=== PATIENT | female | born 1975 | race Caucasian/White ===

== ENCOUNTER 2024-06-07 11:01 | Emergency (ER) | payer SELFPAY ==
[2024-06-07 11:03] VITALS: BP 127/93
--- NOTE | 2024-06-07 11:34 | EDRN ---
Anshu JORDAN in room w/pt at this time.
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
[2024-06-07 12:03] VITALS: BMI 20.7
[2024-06-07 12:09] VITALS: BP 101/78
[2024-06-07 12:13] LABS: % Basophils 0.4 % (0-2); % Eosinophils 0.7 % (0-6); % Immature Granulocytes 0.2 % (0-0.5); % Lymphocytes 17.2 % (20.5-51.1); % Monocytes 7.3 % (1.7-9.3); % Neutrophils 74.2 % (42.2-75.2); Absolute Basophils 0.1 10^3/uL (0-0.2); Absolute Eosinophils 0.1 10^3/uL (0-0.7); Absolute Lymphocytes 2.1 10^3/uL (1.2-3.4); Absolute Monocytes 0.9 10^3/uL (0.1-0.6); Hematocrit 39.9 % (37.0-47.0); Hemoglobin 13.9 g/dL (12.0-16.0); Mean Corp Hgb Conc. 34.8 g/dL (33.0-37.0); Mean Corpuscular Volume 86.2 fL (81.0-99.0); Mean Platelet Volume 9.9 fL (7.4-10.4); Nucleated Red Blood Cells % 0 %; Platelet Count 335 10^3/uL (130-400); Red Blood Cell Count 4.63 10^6/uL (4.20-5.40); Red Cell Dist. Width 13.3 % (11.5-14.5); White Blood Cell Count 12.1 10^3/uL (4.8-10.8)
[2024-06-07 12:26] LABS: ALT (SGPT) 24 U/L (0-35); AST (SGOT) 28 U/L (14-36); Albumin 4.6 g/dl (3.5-5.0); Alkaline Phosphatase 64 U/L (38-126); Blood Urea Nitrogen 13 mg/dl (7-17); Calcium 9.7 mg/dl (8.4-10.2); Carbon Dioxide 29 mmol/L (22-30); Chloride 102 mmol/L (98-107); Estimated Creatinine Clearance 85 ml/min; Glucose 105 mg/dl (70-99); Potassium 4.4 mmol/L (3.5-5.1); Sodium 142 mmol/L (135-145); Total Bilirubin 0.4 mg/dl (0.2-1.3); eGFR > 60.00
--- NOTE | 2024-06-07 12:50 | EDRN ---
Pt still needs an xray.
--- NOTE | 2024-06-07 13:55 | EDRN ---
Anshu JORDAN in room w/pt at this time.
[2024-06-07 14:02] VITALS: BP 122/89
== END 2024-06-07 14:07 | disposition home or self-care (01) ==
LOC: EMR 11:01
PROVIDERS: Physician Assistant; EMERGENCY PHYSICIAN Emergency Medicine
DX: S16.1XXA Strain of muscle, fascia and tendon at neck level, initial encounter (principal); S00.83XA Contusion of other part of head, initial encounter; S09.90XA Unspecified injury of head, initial encounter; M79.10 Myalgia, unspecified site; V89.2XXA Person injured in unspecified motor-vehicle accident, traffic, initial encounter
CPT/HCPCS: 99285; 70450; 70486; 71260; 72125; 74177; 80053; 85025; Q9967